=== PATIENT | female | born 1960 | race Caucasian/White ===

== ENCOUNTER 2018-04-13 07:57 | Day surgery (SDC) | payer BC ==
[2018-04-12 16:42] VITALS: BMI 25.4
[2018-04-13] MEDS ORDERED: Oxymetazoline HCl 0.05% ( 15 ML ) ONE ×2 (09:16→10:13)
[2018-04-13 09:33] LABS: Hemoglobin 14.3 g/dL (12.0-16.0)
[2018-04-13] MEDS ORDERED: Midazolam HCl 2 mg/2 ml Vial ONE ×2 (10:00→10:12)
[2018-04-13] MEDS ORDERED: Fentanyl 100 MCG/2 ML VIAL ONE ×4 (10:12→13:00)
[2018-04-13] MEDS ORDERED: Lidocaine 1% w/Epinephrine 1:100K 30 ML VIAL ONE (10:13)
[2018-04-13] MEDS ORDERED: Labetalol HCl 100 MG/20 ML VIAL SLOW IVP SCH (12:30)
[2018-04-13] MEDS ORDERED: Morphine 4 MG/ML VIAL ONE (13:55)
[2018-04-13] MEDS ORDERED: Hydrocodone-Acetamin 15 ML UDCUP ONE (14:39)
[2018-04-13] MEDS ORDERED: Lidocaine 1% PF 5 ML VIAL ONE (16:26)
[2018-04-13] MEDS ORDERED: Ondansetron PF 4 MG/2 ML Vial ONE (16:26)
[2018-04-13] MEDS ORDERED: PROPOFOL 200 MG/20 ML VIAL ONE (16:26)
--- NOTE | 2018-04-13 22:06 | EKG ---
Test Reason : PREOP Blood Pressure : / mmHG Vent. Rate : 056 BPM Atrial Rate : 056 BPM P-R Int : 156 ms QRS Dur : 080 ms QT Int : 444 ms P-R-T Axes : 029 055 046 degrees QTc Int : 428 ms Sinus bradycardia Otherwise normal ECG No previous ECGs available Confirmed by Saleem WING ([id number]) on 04/13/2018 10:06:29 PM Referred By: JAKOB Confirmed By:Saleem WING
--- NOTE | 2018-04-15 11:44 | OP ---
DATE OF PROCEDURE: 04/13/2018 PREOPERATIVE DIAGNOSES: 1. Chronic rhinosinusitis. 2. Nasoseptal deviation. 3. Bilateral inferior turbinate hypertrophy. 4. Nasal obstruction. POSTOPERATIVE DIAGNOSES: 1. Chronic rhinosinusitis. 2. Nasoseptal deviation. 3. Bilateral inferior turbinate hypertrophy. 4. Nasal obstruction. PROCEDURES: 1. Bilateral endoscopic sinus surgery, total ethmoidectomies. 2. Bilateral endoscopic sinus surgery, maxillary antrostomies. 3. Bilateral endoscopic sinus surgery, frontal sinusotomies. 4. Bilateral inferior turbinate submucosal resection. ESTIMATED BLOOD LOSS: 50 mL. COMPLICATIONS: None. ANESTHESIA: GETA. PROCEDURE IN DETAIL: The patient was taken to the operating room, and placed supine on the table. General endotracheal anesthesia was obtained by the anesthesia staff. Tube was secured in the left lower lip. The patient was then placed in a beach chair position and prepped and draped for standard nasal procedure. Following this, a 0-degree scope was advanced in the nasal cavity. 1% lidocaine with 1:100,000 epinephrine was used to inject into the inferior turbinates, middle turbinates, and lateral nasal wall bilaterally. Following this, the ureteroscope was advanced to the nasal cavity. The middle turbinate was gently medialized with a Java elevator and the uncinate process was exposed. Following this, the uncinate process was then anteriorly fractured using a ball-ended probe bilaterally. Following this, the uncinate process was removed using the microdebrider and upbiting Blakesley forceps bilaterally. Following this, the natural maxillary sinus ostia was visualized and gently widened using the straight Blakesley forceps and curved microdebrider bilaterally. Following this, ethmoidal bulla was identified bilaterally and was punctured on its medial and inferior aspect. Using the microdebrider and upbiting Blakesley forceps, ethmoidal bulla and anterior ethmoidal cells were opened. Following this, the grand lamella was identified and blunt Lundy tip suction was used to puncture into the posterior ethmoidal cells. Working from [id number], the ethmoidal cells were opened using the microdebrider and the up-biting Blakesley forceps. Following this, the curved microdebrider and the 45-degree endoscope was used to visualize the frontal sinus recess and ostia. Following this, the frontal sinus ostia was widened using the curved microdebrider bilaterally. Following this, the inferior turbinates were identified and the submucosal microdebrider was used to puncture the anterior and inferior side of the inferior turbinates bilaterally. Submucous resection was performed with anterior and inferior portions of the turbinate. Following this, nasal cavity was irrigated. Mirapex were placed within the middle meatus. The patient tolerated the procedure well. Job ID: [id number]
== END 2018-04-13 15:20 | disposition home or self-care (01) ==
LOC: SDC 07:57
PROVIDERS: ATTEND Otolaryngology Plastic Surgery within the Head & Neck
DX: J32.9 Chronic sinusitis, unspecified (principal); J34.2 Deviated nasal septum; J34.3 Hypertrophy of nasal turbinates; J34.89 Other specified disorders of nose and nasal sinuses; F32.9 Major depressive disorder, single episode, unspecified; Z79.899 Other long term (current) drug therapy; Z88.8 Allergy status to other drugs, medicaments and biological substances
CPT/HCPCS: 36415; 85014; 85018; 93005; 93010; 96374; J2001; J2250; J2270; J2405; J2704; J3010; J3490